=== PATIENT | male | born 1930 | race Caucasian/White ===

== ENCOUNTER → 2016-07-18 | Outpatient (CLI) | payer OTHER | LOC: FIMAGING 14:07 | PROVIDERS: ATTEND Internal Medicine Cardiovascular Disease | DX: I48.91 Unspecified atrial fibrillation (principal); Z79.899 Other long term (current) drug therapy ==

== ENCOUNTER → 2016-07-18 | Outpatient (CLI) | payer OTHER | LOC: BHFA 10:45 | PROVIDERS: ATTEND Internal Medicine Cardiovascular Disease | DX: I48.91 Unspecified atrial fibrillation (principal); R06.02 Shortness of breath; Z79.899 Other long term (current) drug therapy ==

== ENCOUNTER → 2016-08-22 | Outpatient (CLI) | payer OTHER | LOC: FIMAGING 13:22 | PROVIDERS: ATTEND Neurological Surgery | DX: S32.010D Wedge compression fracture of first lumbar vertebra, subsequent encounter for fracture with routine healing (principal) ==

== ENCOUNTER 2017-03-17 11:12 | Observation (INO) | payer OTHER ==
[2017-03-17] MEDS ORDERED: ceFAZolin 2 GM/SWFI 2 GM/20 ML SYR IVP ONE (11:19)
[2017-03-17] MEDS ORDERED: DIAZEPAM 5 MG TAB PO ONE (11:19)
[2017-03-17] MEDS ORDERED: NS 1,000 ML IV ONE (11:19)
[2017-03-17] MEDS ORDERED: BACITRACIN IRRIGATION/NS 50,000 UNITS/1,000 ML BTL IRR ONE (11:19)
[2017-03-17] MEDS ORDERED: diphenhydrAMINE 25 MG CAP PO ONE (11:19)
--- NOTE | 2017-03-17 11:46 | PDGENHP ---
History & Physical Chief Complaint: Cardiomyopathy History of Present Illness: Cardiomyopathy. AFIB Relevant Physical Exam: S1S2 irreg. CTA. AO 3 Cardiorespiratory Assessment: RV pacing >50%, worsening cardiomyopathy. AFIB. For BiV pacemaker upgrade from V pacemaker
--- NOTE | 2017-03-17 12:06 | PDANEPAE ---
ANE Past Medical History - Cardiovascular History Hx Arrhythmias: Yes Hx CHF / Valvular Disease: Yes - Pulmonary History Hx COPD: No Hx Asthma/Reactive Airway Disease: No Hx Oxygen in Use at Home: No - Endocrine History Hx Diabetes: No ANE Review of Systems Review of Systems: - Exercise capacity Exercise capacity: <4 METS - Systems Neurological: Reports: other (Lumbar compression fx last yr, has frequent pain but no opioid Rx.) ANE Patient History - Allergies Allergies/Adverse Reactions: No Known Allergies Allergy (Unverified 02/06/16 10:29) - Home Medications Home Medications: Aspirin 81mg (*) 02/06/16 [Last Taken Unknown] - Anes Hx Anes Hx: no prior problems - Smoking Hx Smoking Status: Never smoked ANE Physical Exam - Airway Mallampati Score: Class 2 Mouth exam: normal dental/mouth exam - Pulmonary Pulmonary: no respiratory distress, no rales or rhonchi, clear to auscultation - Cardiovascular Cardiovascular: regular rate and rhythym - ASA Status ASA Status: III ANE Anesthesia Plan Anesthesia Plan: MAC
[2017-03-17] MEDS ORDERED: fentaNYL 100 MCG/2 ML INJ ONE (12:11)
[2017-03-17] MEDS ORDERED: PROPOFOL 200 MG/20 ML VIAL ONE (12:11)
--- NOTE | 2017-03-17 12:15 | CPEKG ---
Heart Rate: 75 RR Interval: 800 P-R Interval: 262 QRSD Interval: 166 QT Interval: 504 QTC Interval: 563 P [place]: 0 QRS [place]: 121 T Wave [place]: 15 EKG Severity - ABNORMAL ECG - EKG Impression: VENTRICULAR-PACED COMPLEXES EKG Impression: NONSPECIFIC INTRAVENTRICULAR CONDUCTION DELAY Electronically Signed By: Paulo Villeda 17-Mar-2017 14:47:18
[2017-03-17 12:29] LABS: % IMMATURE GRANULYOCYTES 0.5 % (0.0-1.1); ABSOLUTE IMMATURE GRANULOCYTES 0.02 10^3/uL (0.00-0.10); ADD DIFF? NO; ADD MORPH? NO; ADD SCAN? NO; ATYPICAL LYMPHOCYTE FLAG 0 (0-99); FRAGMENT RBC FLAG 0 (0-99); HEMATOCRIT 41.6 % (40.0-51.0); HEMOGLOBIN 14.5 g/dL (13.7-17.5); LEFT SHIFT FLG 0 (0-99); LIPEMIA HEMOLYSIS FLAG 90 (0-99); MEAN CELL HEMOGLOBIN 35.5 pg (27.9-34.1); MEAN CELL HEMOGLOBIN CONCENTR. 34.9 g/dL (32.4-36.7); MEAN CELL VOLUME 101.7 fL (81.5-99.8); MEAN PLATELET VOLUME 10.5 fL (8.7-11.7); PLATELET CLUMPS FLAG 0 (0-99); PLATELET COUNT 148 10^3/uL (150-400); RED BLOOD CELL COUNT 4.09 10^6/uL (4.40-6.38); RED CELL DISTRIBUTION WIDTH 12.9 % (11.5-15.2)
[2017-03-17] MEDS ORDERED: BUPIVACAINE 0.5% 30 ML SDV ONE (12:31)
[2017-03-17] MEDS ORDERED: LIDOCAINE 1% 300 MG/30 ML SDV ONE (12:31)
[2017-03-17] MEDS ORDERED: IOPAMIDOL (ISOVUE-300) 100 ML BTL ONE (12:32)
[2017-03-17 12:43] LABS: ANION GAP 14 mEq/L (8-16); CALCIUM 9.5 mg/dL (8.5-10.4); CARBON DIOXIDE 23 mEq/l (22-31); CHLORIDE 102 mEq/L (97-110); GLOMERULAR FILTRATION RATE > 60; GLUCOSE 80 mg/dL (70-100); POTASSIUM 4.4 mEq/L (3.5-5.2); SODIUM 139 mEq/L (134-144)
[2017-03-17 12:49] LABS: INR 1.14 (0.83-1.16); PROTIME(PATIENT) 14.5 SEC (12.0-15.0)
[2017-03-17] MEDS ORDERED: PHENYLEPHRINE HCL 100 MCG/ML SYR ONE (13:55)
[2017-03-17] MEDS ORDERED: HYDROCODONE/APAP 5/325 TAB PO PRN (14:24)
[2017-03-17] MEDS ORDERED: PROMETHAZINE HCL 25 MG/ML INJ IVP PRN (14:24)
[2017-03-17] MEDS ORDERED: fentaNYL 100 MCG/2 ML INJ IVP PRN (14:24)
[2017-03-17] MEDS ORDERED: ONDANSETRON 4 MG/2 ML VIAL IVP PRN (14:24)
[2017-03-17] MEDS ORDERED: DEXAMETHASONE 4 MG/ML VIAL IVP PRN (14:24)
[2017-03-17] MEDS ORDERED: NALOXONE HCL 0.4 MG/ML INJ IVP PRN (14:24)
--- NOTE | 2017-03-17 14:46 | POSTANESTH ---
Post Anesthetic Evaluation Cardiovascular Status: Normal, Stable, Similar to Pre-Op Cond Respiratory Status: Normal, Stable, Similar to Pre-op Cond. Level of Consciousness/Mental Status: Can Participate in Eval, Alert and Oriented Pain Control: Adequate, Prn Tx Ordered Nausea/Vomiting Control: Adequate, Prn Tx Ordered Complications Possibly Related to Anesthesia: None Noted
--- NOTE | 2017-03-17 15:33 | CPEKG ---
Heart Rate: 75 RR Interval: 800 P-R Interval: 246 QRSD Interval: 130 QT Interval: 484 QTC Interval: 541 P [place]: 0 QRS [place]: 124 T Wave [place]: 84 EKG Severity - ABNORMAL ECG - EKG Impression: VENTRICULAR-PACED RHYTHM Electronically Signed By: Jeremy Bess 17-Mar-2017 22:08:36
--- NOTE | 2017-03-17 16:45 | EPPROC ---
Electrophysiology Procedure Note: PROCEDURE PERFORMED: 1. Upgrade of V PM to BiV PM (no atrial lead) 2. Subclavian vein angiography 3. Fluoroscopy INDICATION: V pacemaker Permanent AFIB Cardiomyopathy PROCEDURE NOTE: Patient presented to the cardiac catheterization laboratory in a fasting, postabsorptive state. Dr. Reese Clay administered sedation. The left infraclavicular area was prepped and draped in the usual sterile fashion. Lidocaine plus bupivacaine was used for local anesthesia. left subclavian venography was performed by injection of iodinated contrast into the left antecubital vein. This was done to assure patency of the vein and also to assess for any anatomical aberrations. Using a combination of blunt and sharp dissection and electrocautery, the dissection was carried down to the prepectoral fascia. The existing. Importance of snf follow up in our device clinic were discussed. Immediate and snf complications were discussed. pocket was exposed. All bleeding was controlled with electrocautery. The pocket was packed with gauze soaked in antibiotic solution. Fluoroscopy was utilized during the entire procedure for venous access and placement of the leads. Using a direct stick technique the left extrathoracic axillary vein was accessed with 1 stick using the modified Seldinger technique. Placement of the guide wire into the venous system was confirmed by low pressure blood return and also by visualizing the guide wire advancing into the inferior vena cava. A purse string suture was applied around the guide wire. Diagnostic testing of the existing lead was performed. A 9 [place] sheath was advanced over the guide wire into the subclavian vein. The coronary sinus ostium was engaged. Occlusion retrograde coronary sinus angiography was performed in 2 views. A coronary sinus bipolar lead was advanced into the coronary sinus. An angioplasty wire was advanced through the lead and advanced into the mid portion of the lateral branch of the coronary sinus. The lead was advanced over the angioplasty wire. Pacing threshold, sensing and impedance was determined. There was no diaphragmatic stimulation at maximum output. The delivery system and the 9 Fr sheath were peeled away. Again, pacing threshold, sensing and impedance was determined. There was no diaphragmatic stimulation at maximum output. The CS lead was secured to the prepectoral fascia with 3nonabsorbablesutures. Pacing threshold and sensing parameters of the RV lead were checked again. The gauze packing was removed from the pacemaker pocket. The pocket was again inspected for any bleeding. The leads were attached to the pacemaker securely. The pacemaker was inserted into the pocket and secured in place with a nonabsorbable suture. Fluoroscopy was performed in VACA and MANDY planes to verify right sided placement of the RA and RV leads. Also fluoroscopy of the pacemaker pocket was performed. The pacemaker pocket was closed in 3 layers with absorbable monocryl sutures and nani. Appropriate dressing was applied. The patient left the cardiac catheterization laboratory in stable condition. Serial Numbers: 1. Device [employer] PM 3262 serial [id number] 2. Right Ventricular Lead [place] 4136/Biotronik serial [id number] 3. Left Ventricular Lead [employer] 1457 Q 75 cm serial number [id number] Stimulation Thresholds & Impedance Measurements: 1. Right Ventricular Lead R-wave 7.8 mV impedance 590 Ohms threshold 0.75 volts at 0.5 millisecond 2. Left Ventricular Lead R-wave 23.1 mV impedance 840 Ohms threshold 0.6 volts at 0.5 milliseconds Cm Pacing Parameters: 1. Pacing mode VVIR 2. Lower rate 70 beats per minute 3. Upper rate 120 beats per minute The patient has been known to have permanent atrial fibrillation. The patient was in atrial fibrillation prior to the procedure. Post procedure he was noted to have P-waves consistent with sinus rhythm. However given severe left atrial enlargement and permanent atrial fibrillation, we have decided not to place an atrial lead at this time. I discussed the above with 4 of the patient's children and also with Oly Devries NP. If he remains in sinus rhythm for an appreciable amount of time, in the future consider addition of an atrial lead. Patient Problems: Problems Problem Status Onset Cardiomyopathy Acute
[2017-03-17] MEDS ORDERED: LISINOPRIL 20 MG TAB PO SCH (20:00)
[2017-03-17] MEDS ORDERED: ACETAMINOPHEN 325 MG TAB PO PRN (20:14)
[2017-03-18 05:17] LABS: % IMMATURE GRANULYOCYTES 0.3 % (0.0-1.1); ABSOLUTE IMMATURE GRANULOCYTES 0.01 10^3/uL (0.00-0.10); ADD DIFF? NO; ADD MORPH? NO; ADD SCAN? NO; ATYPICAL LYMPHOCYTE FLAG 0 (0-99); FRAGMENT RBC FLAG 0 (0-99); HEMOGLOBIN 12.1 g/dL (13.7-17.5); LEFT SHIFT FLG 0 (0-99); LIPEMIA HEMOLYSIS FLAG 90 (0-99); MEAN CELL HEMOGLOBIN 35.1 pg (27.9-34.1); MEAN CELL HEMOGLOBIN CONCENTR. 34.6 g/dL (32.4-36.7); MEAN CELL VOLUME 101.4 fL (81.5-99.8); MEAN PLATELET VOLUME 10.8 fL (8.7-11.7); PLATELET CLUMPS FLAG 0 (0-99); PLATELET COUNT 118 10^3/uL (150-400); RED BLOOD CELL COUNT 3.45 10^6/uL (4.40-6.38); RED CELL DISTRIBUTION WIDTH 12.9 % (11.5-15.2)
[2017-03-18 05:29] LABS: ANION GAP 9 mEq/L (8-16); CALCIUM 8.7 mg/dL (8.5-10.4); CARBON DIOXIDE 23 mEq/l (22-31); CHLORIDE 105 mEq/L (97-110); CREATININE 0.9 mg/dL (0.7-1.3); GLOMERULAR FILTRATION RATE > 60; GLUCOSE 67 mg/dL (70-100); POTASSIUM 4.2 mEq/L (3.5-5.2); SODIUM 137 mEq/L (134-144)
[2017-03-18 07:12] VITALS: BP 129/57; PULSE 54; RESP 14; TEMP 97.6; O2SAT 90
[2017-03-18] MEDS ORDERED: AMIODARONE HCL 200 MG TAB PO SCH (08:00)
--- NOTE | 2017-03-18 08:51 | CPEKG ---
Heart Rate: 75 RR Interval: 800 P-R Interval: 265 QRSD Interval: 134 QT Interval: 476 QTC Interval: 532 P [place]: 0 QRS [place]: 139 T Wave [place]: 86 EKG Severity - ABNORMAL ECG - EKG Impression: VENTRICULAR-PACED RHYTHM Electronically Signed By: Jeremy Bess 18-Mar-2017 16:55:06
[2017-03-18] MEDS ORDERED: ASPIRIN EC 81 MG TAB PO SCH (09:00)
[2017-03-18] MEDS ORDERED: FUROSEMIDE 20 MG TAB PO SCH (09:00)
[2017-03-18] MEDS ORDERED: MULTIVITAMINS 1 EACH TAB PO SCH (09:00)
--- NOTE | 2017-03-18 12:53 | ASDISCHSUM ---
Discharge Information Plan Status:Home with No Needs Medically Cleared to Leave:03/17/2017 Discharge Date:03/18/2017 12:37 PM CM D/C Disposition:Home, Routine, Self-Care ADT D/C Disposition:Home, Routine, Self-Care Projected Discharge Date:03/18/2017 12:37 PM Transportation at D/C:Family Discharge Delay Reason: Follow-Up Date:03/18/2017 12:37 PM Discharge Slot: Final Diagnosis: Placement Information Patient Contact Information Contact Name:ANGEL Relationship:Daughter Address:[address] Work Phone: City:[place] Alternate Phone: [facility]/Zip Code:[place] [address] Email: Financial Information Financial Class:[facility] Primary Plan Desc:MEDICARE OUTPATIENT Primary Plan Number:[id number] Secondary Plan Desc: Secondary Plan Number: Assessment Information Intervention Information
--- NOTE | 2017-03-18 21:43 | GDS ---
[f rep st] DISCHARGE SUMMARY DISCHARGE DIAGNOSES: 1. Permanent atrial fibrillation. 2. Upgrade from single-chamber pacemaker to biventricular pacemaker. 3. 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 4. Mitral regurgitation. 5. Nonsustained ventricular tachycardia. BRIEF HISTORY: This is an 86-year-old man with a history of permanent atrial fibrillation with a single-chamber pacemaker. The percent of pacing in the RV has been increasing. He has had recent admissions for heart failure. He does have mitral regurgitation but is not a candidate for clip. He has a history of nonsustained ventricular tachycardia seen on pacemaker, for which he takes amiodarone for. He has previously declined ICD. He is taking maximally tolerated medications. Dr. Villeda upgraded his single-chamber pacemaker and placed an LV lead and changed the device to a [employer] 3262 BiV pacemaker. This is programmed to VVIR rate of 75 beats per minute. Patient has done well overnight without any chest discomfort, shortness of breath, or significant pain at his pacemaker site. He has not had any bleeding at his site. Device interrogation on the morning of discharge demonstrated RV capture threshold of 0.625 V at 0.5 milliseconds. R-wave 7.8 mV, lead impedance 600 ohms. LV capture threshold is 0.875 V at 0.5 milliseconds. Lead impedance is 590 ohms. There is 99% BiV pacing. Underlying sinus with CHB. TESTING DONE: Chest x-ray demonstrated stable lead placement without pneumothorax. LABORATORY DATA: WBC is 3.98, hemoglobin 12.1, hematocrit 35, platelets 118. PT 14.5, INR 1.14. Sodium is 137, potassium 4.2, chloride 105, bicarb 23, BUN 33, creatinine 0.9, glucose 67. PHYSICAL EXAMINATION: VITAL SIGNS: Blood pressure is 129/57, pulse is 75, respirations 14, temperature is 36.4, O2 saturation on room air is 98%. GENERAL : He is alert and oriented, in no acute distress, sitting up in a chair. CARDIAC: Regular rate, rhythm with a 2/6 systolic murmur at the left sternal border. LUNGS: Clear to auscultation. ABDOMEN: Soft and nontender. PACEMAKER SITE: Gauze dressing is without blood and opsite covering is dry and intact. There is minimal swelling. EXTREMITIES: Warm. No discoloration. DISCHARGE INSTRUCTIONS: Post pacemaker implant activity restrictions were reviewed with patient, including no lifting over 10 pounds and no lifting arm above shoulder for 4 weeks. He was also given written instructions at the time of discharge. FOLLOWUP: He has a followup pacemaker and wound check scheduled March 25 at 1:30 at [facility], and he will follow up with Dr. Villeda in 1 month. He will continue routine device monitoring by Oly Devries NP at [facility]. /[id number]/MODL MTDD
[2017-03-19] MEDS ORDERED: AMIODARONE HCL 200 MG TAB PO SCH (08:00)
== END 2017-03-18 12:37 | disposition home or self-care (01) ==
LOC: FSGY 11:12 → F2W 14:28
PROVIDERS: ADMIT Internal Medicine Cardiovascular Disease; ATTEND Internal Medicine Cardiovascular Disease
PROC: 02HL3JZ Insertion of Pacemaker Lead into Left Ventricle, Percutaneous Approach (ICD-10-PCS; principal; 2017-03-17)
PROC: 0JH607Z Insertion of Cardiac Resynchronization Pacemaker Pulse Generator into Chest Subcutaneous Tissue and Fascia, Open Approach (ICD-10-PCS; principal; 2017-03-17)
PROC: 0JPT0PZ Removal of Cardiac Rhythm Related Device from Trunk Subcutaneous Tissue and Fascia, Open Approach (ICD-10-PCS; principal; 2017-03-17)
DX: I42.9 Cardiomyopathy, unspecified (principal); I50.9 Heart failure, unspecified; I48.1 Persistent atrial fibrillation
CPT/HCPCS: 33225; 33228; 71010; 71020; 93005; C1769; C1893; C1900; C2621; J0690; J2370; J2704; J3010; Q9967